=== PATIENT | female | born 1950 | race African-American/Black ===

== ENCOUNTER 2021-03-25 15:51 | Emergency (ER) | payer MEDICARE, MEDICAID ==
[~2021-03-25] VITALS: Ht 162.6 cm; Wt 52.0 kg
[~2021-03-25 15:51] MED LIST: ACET-3161 PO; ACET650T37 PO; ASPI-1406 PO; BRIM10DR2 OP; DEXT15DR5 EACHEYE; DILT360C27 PO; GABA-532 PO; ISOS120T5 PO; LEVO75TA7 PO; METH50TA5 PO; METO-396 PO; NASOI NS; NEOSODR BOTHEYE; NITR0.4T49 SL; OMEP20TA15 PO; PRAV10TA35 PO; PRED5DRO7 EACHEYE; PREDG05 BOTHEYE; RANO500T3 PO; SUMA100T16 PO; TRAV2.5D EACHEYE; TRAV2.5D RIGHTEYE
[2021-03-25 16:15] VITALS: BP 140/102
[2021-03-25] MEDS ORDERED: ACETAMINOPHEN 325MG TABLET PO ONE (16:30)
[2021-03-25] MEDS ORDERED: T3 PO (17:39)
== END 2021-03-25 17:50 | disposition home or self-care (01) ==
LOC: ER 15:51
DX: M54.5 Low back pain (principal); J45.909 Unspecified asthma, uncomplicated; I10 Essential (primary) hypertension; E78.00 Pure hypercholesterolemia, unspecified; E03.9 Hypothyroidism, unspecified; H54.7 Unspecified visual loss; V49.50XA Passenger injured in collision with unspecified motor vehicles in traffic accident, initial encounter; Y93.9 Activity, unspecified; Y92.410 Unspecified street and highway as the place of occurrence of the external cause; Z88.6 Allergy status to analgesic agent; Z79.82 Long term (current) use of aspirin; Z86.73 Personal history of transient ischemic attack (TIA), and cerebral infarction without residual deficits; Z90.710 Acquired absence of both cervix and uterus
CPT/HCPCS: 72100; 99283

== ENCOUNTER 2022-04-05 12:28 | Inpatient (IN) | payer MEDICARE, MEDICAID ==
[~2022-04-05] VITALS: Ht 160 cm; Wt 54.4 kg
[~2022-04-05 12:28] MED LIST changes: +ACET-3163 PO; -ACET650T37 PO; +T3 PO; -TRAV2.5D EACHEYE; -TRAV2.5D RIGHTEYE; +TRAV2.5D9 EACHEYE; +TRAV2.5D9 RIGHTEYE
[2022-04-05] MEDS ORDERED: KETOROLAC 60MG/2ML VIAL IM ONE (12:45)
[2022-04-05] MEDS ORDERED: ACETAMINOPHEN 325MG TABLET PO ONE (12:45)
[2022-04-05] MEDS ORDERED: SODIUM CHLORIDE 0.9% 1000ML BAG (SEPSIS BOLUS) IV ONE (12:45)
[2022-04-05] MEDS ORDERED: TRAMADOL 50MG TABLET PO ONE (12:45)
[2022-04-05] MEDS: ACETAMINOPHEN 500MG TABLET PO NR ×2 (14:45→18:55)
[2022-04-05] MEDS: TRAMADOL 50MG TABLET PO NR ×2 (14:50→19:14)
[2022-04-05 15:18] LABS: CHLORIDE 114 mEq/L (98-107)
[2022-04-05 15:23] LABS: BASOPHILS % 0.3 % (0.0-2.0); EOSINOPHILS % 1.4 % (0.0-5.0); HEMOGLOBIN. 12.3 g/dL (12.0-16.0); LYMPHOCYTES % 15.9 % (20.0-50.0); MEAN CORPUSCULAR HEMOGLOBIN 29.5 pg (28.0-32.0); MEAN CORPUSCULAR VOLUME 91.2 fL (81.0-99.0); MEAN PLATELET VOLUME 9.6 fl (7.4-10.4); NEUTROPHILS % 71.4 % (40.0-76.0); PLATELET 208 x1000/uL (130-400); RED BLOOD CELL COUNT 4.17 mill/uL (4.2-5.4); RED CELL DISTRIBUTION WIDTH 14.8 % (11.6-14.6)
[2022-04-05 15:56] LABS: CLARITY URINE CLEAR (CLEAR); COLOR URINE YELLOW (YELLOW); KETONES URINE NEGATIVE (NEGATIVE); LEUKOCYTE ESTERASE URINE TRACE (NEGATIVE); NITRITE URINE NEGATIVE (NEGATIVE); OCCULT BLOOD URINE NEGATIVE (NEGATIVE); PH URINE 7.5 (4.5-8.0); PROTEIN URINE NEGATIVE (NEGATIVE); SPECIFIC GRAVITY URINE 1.007 (1.005-1.030)
[2022-04-05] MEDS ORDERED: MORPHINE SULFATE 4 MG/ML CPJ (NOT FOR IM USE) IV ONE (16:15)
[2022-04-06] VITALS (7 sets, daily range): BP systolic 108–123; BP diastolic 75–84
[2022-04-06] MEDS ORDERED: ONDANSETRON HCL 4MG/2ML INJ IV PRN (05:30)
[2022-04-06] MEDS ORDERED: ACETAMINOPHEN 325MG TABLET PO PRN (07:00)
[2022-04-06 08:54] LABS: BASOPHILS % 0.2 % (0.0-2.0); HEMATOCRIT. 40.6 % (36.0-48.0); HEMOGLOBIN. 13.5 g/dL (12.0-16.0); LYMPHOCYTES % 15.9 % (20.0-50.0); MEAN CORPUSCULAR VOLUME 90.4 fL (81.0-99.0); MEAN PLATELET VOLUME 9.4 fl (7.4-10.4); NEUTROPHILS % 72.9 % (40.0-76.0); PLATELET 213 x1000/uL (130-400); RED BLOOD CELL COUNT 4.49 mill/uL (4.2-5.4); RED CELL DISTRIBUTION WIDTH 14.5 % (11.6-14.6)
[2022-04-06 09:04] LABS: CHLORIDE 113 mEq/L (98-107)
[2022-04-06] MEDS: TRAMADOL 50MG TABLET PO PRN ×2 (09:25→18:58)
[2022-04-06 09:26] LABS: HDL CHOLESTEROL 65 mg/dL (40-59); LDL CHOLESTEROL 133 mg/dL (5-100)
[2022-04-06] MEDS: SODIUM CHLORIDE 0.45% 1,000 ML IV SCH (13:05)
[2022-04-06] MEDS ORDERED: NALOXONE HCL 0.4MG/ML VIAL IV PRN (23:45)
[2022-04-07] VITALS: BP 132/72
[2022-04-07] MEDS: SODIUM CHLORIDE 0.45% 1,000 ML IV SCH ×3 (01:22→23:54)
[2022-04-07] MEDS: TRAMADOL 50MG TABLET PO PRN ×2 (03:53→13:12)
[2022-04-07 03:59] VITALS: BP 138/84
[2022-04-07 08:00] VITALS: BP 120/73
[2022-04-07 10:43] LABS: *AMPHETAMINES SCREEN URINE NEGATIVE (NEGATIVE); *BARBITURATES SCREEN URINE NEGATIVE (NEGATIVE); *BENZODIAZEPINES SCREEN URINE NEGATIVE (NEGATIVE); *COCAINE SCREEN URINE NEGATIVE (NEGATIVE); CANNABINOID URINE SCREEN NEGATIVE (NEGATIVE); METHADONE URINE SCREEN NEGATIVE (NEGATIVE); OPIATES URINE SCREEN PRESUMTIVE POSITIVE (NEGATIVE); PHENCYCLIDINE URINE SCREEN NEGATIVE (NEGATIVE)
[2022-04-07 12:00] VITALS: BP 148/90
[2022-04-07] MEDS: PREDNISONE 10MG TABLET PO SCH (12:12)
[2022-04-07 15:38] VITALS: BP 131/84
[2022-04-07] MEDS ORDERED: *PATIENT'S OWN MEDICATION STORAGE XX SCH (17:00)
[2022-04-07] MEDS ORDERED: NITROGLYCERIN 0.4MG TABLET SL SL PRN (17:45)
[2022-04-07 20:00] VITALS: BP 119/81
[2022-04-07] MEDS: GABAPENTIN 300MG CAPSULE PO SCH (21:39)
[2022-04-07] MEDS: BRIMONIDINE 0.2% OPHTH DROPS 5ML BOTHEYE SCH (21:39)
[2022-04-08] VITALS: BP 144/80
[2022-04-08 04:00] VITALS: BP 136/64
[2022-04-08] MEDS: BRIMONIDINE 0.2% OPHTH DROPS 5ML BOTHEYE SCH ×2 (06:17→13:59)
[2022-04-08] MEDS: LEVOTHYROXINE SODIUM 75MCG TABLET PO SCH (06:17)
[2022-04-08] MEDS: GABAPENTIN 300MG CAPSULE PO SCH ×3 (06:18→21:57)
[2022-04-08] MEDS: OMEPRAZOLE 20MG CAPSULE EXTENDED RELEASE PO SCH (06:18)
[2022-04-08 07:35] LABS: BASOPHILS % 0.3 % (0.0-2.0); EOSINOPHILS % 1.7 % (0.0-5.0); HEMATOCRIT. 36.8 % (36.0-48.0); HEMOGLOBIN. 12.3 g/dL (12.0-16.0); MEAN CORPUSCULAR HEMOGLOBIN 29.5 pg (28.0-32.0); MEAN CORPUSCULAR VOLUME 88.4 fL (81.0-99.0); MEAN PLATELET VOLUME 9.4 fl (7.4-10.4); MONOCYTES % 10.1 % (2.0-8.0); NEUTROPHILS % 65.9 % (40.0-76.0); PLATELET 209 x1000/uL (130-400); RED BLOOD CELL COUNT 4.16 mill/uL (4.2-5.4); RED CELL DISTRIBUTION WIDTH 14.2 % (11.6-14.6)
[2022-04-08 07:56] LABS: CHLORIDE 112 mEq/L (98-107)
[2022-04-08 08:00] VITALS: BP 111/72
[2022-04-08] MEDS: ASPIRIN 81MG TABLET PO SCH (08:29)
[2022-04-08] MEDS: PREDNISONE 10MG TABLET PO SCH (08:29)
[2022-04-08] MEDS ORDERED: METOPROLOL SUCCINATE 50MG ER TABLET PO SCH (09:00)
[2022-04-08] MEDS ORDERED: DILTIAZEM HCL 180MG CAPSULE CD 24HR PO SCH (09:00)
[2022-04-08] MEDS ORDERED: POTASSIUM CHLORIDE 20MEQ TABLET SR PO NR (11:00)
[2022-04-08 12:00] VITALS: BP 119/71
[2022-04-08] MEDS: SODIUM CHLORIDE 0.45% 1,000 ML IV SCH (13:59)
[2022-04-08 16:00] VITALS: BP 103/62
[2022-04-08 22:14] VITALS: BP 95/59
[2022-04-09] MEDS: SODIUM CHLORIDE 0.45% 1,000 ML IV SCH (02:40)
[2022-04-09 03:21] VITALS: BP 103/70
[2022-04-09 04:33] VITALS: BP 98/64
[2022-04-09] MEDS: BRIMONIDINE 0.2% OPHTH DROPS 5ML BOTHEYE SCH ×2 (06:00→07:03)
[2022-04-09] MEDS: OMEPRAZOLE 20MG CAPSULE EXTENDED RELEASE PO SCH (06:57)
[2022-04-09] MEDS: LEVOTHYROXINE SODIUM 75MCG TABLET PO SCH (06:57)
[2022-04-09] MEDS: GABAPENTIN 300MG CAPSULE PO SCH (06:58)
[2022-04-09 08:00] VITALS: BP 103/60
[2022-04-09 08:09] LABS: BASOPHILS % 0.4 % (0.0-2.0); EOSINOPHILS % 1.8 % (0.0-5.0); HEMOGLOBIN. 11.7 g/dL (12.0-16.0); LYMPHOCYTES % 26.8 % (20.0-50.0); MEAN CORPUSCULAR HEMOGLOBIN 29.5 pg (28.0-32.0); MEAN CORPUSCULAR VOLUME 88.2 fL (81.0-99.0); MEAN PLATELET VOLUME 9.7 fl (7.4-10.4); MONOCYTES % 10.5 % (2.0-8.0); NEUTROPHILS % 60.5 % (40.0-76.0); PLATELET 234 x1000/uL (130-400); RED BLOOD CELL COUNT 3.97 mill/uL (4.2-5.4); RED CELL DISTRIBUTION WIDTH 14.1 % (11.6-14.6)
[2022-04-09 08:29] LABS: CHLORIDE 114 mEq/L (98-107)
[2022-04-09] MEDS: ASPIRIN 81MG TABLET PO SCH (09:47)
[2022-04-09 10:26] VITALS: BP 103/60
== END 2022-04-09 11:48 | disposition home or self-care (01) | DRG 554 ==
LOC: ER 12:28 → ENRESERV 19:47 → 8WST 20:11 → EDBEDREQTM 20:14 → EDBEDREQ 20:14 → ENRESERV 22:30 → 6WST 04-06 00:11 → 8WST 04-06 00:13 → 6EST 04-08 12:04
PROVIDERS: ADMIT Internal Medicine; ATTEND Internal Medicine
DX: M16.0 Bilateral primary osteoarthritis of hip (principal); E44.1 Mild protein-calorie malnutrition; R26.9 Unspecified abnormalities of gait and mobility; I25.10 Atherosclerotic heart disease of native coronary artery without angina pectoris; I11.0 Hypertensive heart disease with heart failure; H40.9 Unspecified glaucoma; H54.8 Legal blindness, as defined in USA; E03.9 Hypothyroidism, unspecified; G89.29 Other chronic pain; J45.909 Unspecified asthma, uncomplicated; E78.00 Pure hypercholesterolemia, unspecified; I50.9 Heart failure, unspecified; D64.9 Anemia, unspecified; E86.0 Dehydration; M54.50 Low back pain, unspecified; F17.200 Nicotine dependence, unspecified, uncomplicated; Z86.73 Personal history of transient ischemic attack (TIA), and cerebral infarction without residual deficits; Z68.21 Body mass index [BMI] 21.0-21.9, adult; Z88.8 Allergy status to other drugs, medicaments and biological substances; Z79.899 Other long term (current) drug therapy; Z90.710 Acquired absence of both cervix and uterus; Z82.61 Family history of arthritis; Z82.3 Family history of stroke; G90.9 Disorder of the autonomic nervous system, unspecified
CPT/HCPCS: 36415; 71045; 73521; 80048; 80053; 80061; 80305; 81003; 83605; 84145; 84443; 84484; 85025; 85651; 86140; 97116; 97162; 97166; 99285; J1885; J2270; J7030; J7512